=== PATIENT | male | born 1945 | race Caucasian/White ===

== ENCOUNTER 2024-06-27 17:53 | Emergency (ER) | payer MEDICARE, MEDICAID, SELFPAY ==
[2024-06-27 18:42] VITALS: PULSE 118; O2SAT 95
[2024-06-27 18:58] VITALS: BP 125/57; PULSE 75; RESP 18; TEMP 37.1; O2SAT 95
--- NOTE | 2024-06-27 19:34 | PD.EDURI ---
Upper Respiratory Inf. RME/HPI General Chief Complaint: Flu Like Symptoms Stated Complaint: FLU LIKE SYMPTOMS Time Seen by Provider: 06/27/24 18:49 Arrival date/time: 06/27/24 17:53 RME / HPI RME / HPI Narrative: Patient is a 79-year-old male with past medical history of hypothyroidism, BPH, gout, asthma, and Down syndrome who was brought in by caregiver from his intermediate due to concerns for worsening upper respiratory symptoms which initially started 4 days ago. Home RN noted that patient was having wet lung sounds and that O2 saturations were about 93% when he is normally around 98%, therefore recommended coming to the hospital. Patient noted to have clear phelgm and cough. Notable sick contacts include the caregiver. Earlier this week patient was prescribed a Z-arsenio and has now finished 4 out of 5 days.The caregiver denies any notable fever, chills, sweats, vomiting, or diarrhea. MD Complaint: cough and nasal congestion Onset (ago): day(s) Duration: constant Severity: moderate Description of mucous: clear Able to tolerate fluids by mouth: Yes Context: sick contacts Associated symptoms: nasal congestion and cough Treatments prior to arrival: acetaminophen, aspirin and antibiotics Related Data Home Medications ?Medication ?Instructions ?Recorded ?Confirmed Aspirin Ec * (ECOTRIN *) 81 mg PO QDAY ##0 06/24/16 TAMSULOSIN HCL 0.4 mg PO HS ##0 06/24/16 allopurinol 100 mg tablet 100 mg PO QDAY #0 tabs 06/24/16 (Zyloprim) loratadine 10 mg tablet (Claritin) 10 mg PO QDAY #0 tabs 06/24/16 meloxicam 7.5 mg tablet 7.5 mg PO HS #0 tabs 06/24/16 Previous Rx's ?Medication ?Instructions ?Recorded nebulizer and compressor #1 ea 02/10/23 Allergies Allergy/AdvReac Type Severity Reaction Status Date / Time No Known Allergies Allergy Unverified 02/03/23 06:47 Past Medical History Past Medical History Comments PMH COMMENT: Past Medical History: Hypothyroidism, BPH, gout, asthma, and Down syndrome Family History: Unknown Surgical History: Unknown Social History: Denies history of smoking, denies current alcohol use, denies recreational drug use Current Medications: Allopurinol 100 mg qday, aspirin 81 mg qday, levothyroxine 50 mcg qday, loratidine 10 mg qday, meloxicam 7.5 mg HS, tamsulosin 0.4 mg HS, albuterol 90 mcg prn (Source: Caregiver's patient medication list) Allergies: No known drug allergies ED Exam Narrative Physical exam: Physical Exam General: Awake and in no acute distress. Developmentally delayed, minimal verbal interaction. HEENT: Normocephalic, atraumatic, mucous membranes moist. Heart: Regular rate and rhythm, no murmurs. Lungs: Bilateral rhonchi auscultated bilateral upper and lower lobes. No wheezing. Abdomen: Soft, nondistended, nontender, positive bowel sounds. ?No guarding or rebound tenderness. Neurologic: Unable to assess orientation, no gross neurological deficit, and patient able to move all 4 extremities. Extremities: No edema. Skin: No rash or ecchymoses. Course Quality Measures none Orders Category Date Time Status Bedside COVID-19 Antigen Test NOW Care 06/27/24 19:42 Completed Bedside Influenza A&B Antigen Test NOW Care 06/27/24 19:42 Completed CXRP [XR chest 1V portable] Stat Exams 06/27/24 19:38 Completed CBC Stat Lab 06/27/24 19:57 Completed CMP [Comprehensive Metabolic Panel] Stat Lab 06/27/24 19:57 Completed Procalcitonin Stat Lab 06/27/24 19:57 Completed Urinalysis, C/S if Indicated Stat Lab 06/27/24 20:17 Completed Urine Culture Stat Lab 06/27/24 20:17 Received Albuterol/Ipratr Rt Donna [Duoneb Rt Donna] Med 06/27/24 19:42 Discontinued 3 ml INH X1 ONE Vital Signs Vital signs: Vital Signs Temperature 98.7 F 06/27/24 18:58 Pulse Rate 75 06/27/24 18:58 Respiratory Rate 18 06/27/24 18:58 Blood Pressure 125/57 L 06/27/24 18:58 Pulse Oximetry (%) 95 06/27/24 18:58 Oxygen Delivery Method Room Air 06/27/24 18:58 Upper Respiratory Infection MDM Narrative MDM Narrative:: CXR returned and shows similar findings to previous CXRs, no new obvious infiltrate. Influenza A swab came back positive. As the patient is saturating at 93-95% on room air, labs are within normal limits, the patient is stable to be discharged home. We did not prescribe any new antibiotics. Advised isolation for about 7-10 days from onset of flu symptoms to avoid spread in the intermediate. Advised to keep patient hydrated and course of illness should be self limiting. Use nebulizer and albuterol when possible. 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 CXR shows bilateral infiltrate however this was compared with a prior X-ray from 01/2023 and there seems to be a baseline level of opacity, possibly due to underlying pulmonary disease, however at that time patient was also admitted for COVID-pneumonia. Medications / Prescriptions Medications or Prescriptions considered but not ordered:: None Medication administrations:: Medication Administration History Discontinued Medications Albuterol/Ipratropium (Albuterol/Ipratropium (Duoneb) Rt Donna 3 Ml Nebu) 3 ml INH X1 ONE Stop: 06/27/24 19:43 Last Admin: 06/27/24 20:24 Dose: 3 ml Documented By: CARRIE . Consultations Consultation(s) initiated? (list below): No Diagnosis Upper Respiratory Differential Diagnosis: upper respiratory infection and bronchitis Most likely diagnosis given after review of the tests above:: Bronchitis, URI, community acquired pneumonia Admission Indicated Admission indicated?: not indicated Admission Request Was there a request for admission?: No Disposition Plan Disposition Plan: Discharge Discharge Attestation Discharge Attestation: The patient and all family members were given an opportunity to ask questions and understood the discharge instructions. Discharge instructions specifically effects, indications for sooner follow up or return to the emergency department, and the expected course of current diagnosis. Patient condition: Stable Discharge Plan Plan Patient Disposition: HOME (Self Care) Disposition Comment: Back to intermediate Patient condition on transfer: Stable Prescriptions/Referrals Prescriptions/Med Rec: No Action Aspirin Ec * (ECOTRIN *) 81 MG TABLET.DR 81 mg PO QDAY Qty: 0 allopurinol [Zyloprim] 100 MG tablet 100 mg PO QDAY Qty: 0 meloxicam 7.5 MG tablet 7.5 mg PO HS Qty: 0 loratadine [Claritin] 10 MG tablet 10 mg PO QDAY Qty: 0 TAMSULOSIN HCL 0.4 MG CAP.ER.24H 0.4 mg PO HS Qty: 0 (DME) nebulizer and compressor Device See Rx Instructions .Route Qty: 1 0RF Rx Instructions: As directed Referrals: Miguel Presley MD [Primary Care Provider] - In 1 week Problem List Clinical Impression: Influenza A with respiratory manifestations Patient/Caregiver Discharge Instructions Discharge Activity: activity as tolerated and resume usual activities Education Materials: COVID-19 and the Flu What's ..., Preventing Common Respiratory ..., The Flu (Influenza), ED Influenza (Adult) Additional Instructions: Treat symptoms ? Treating the symptoms of influenza can help you to feel better but will not make the flu go away faster. ?Rest until the flu is fully resolved, especially if the illness has been severe. ?Fluids ? Drink enough fluids so that you do not become dehydrated. One way to team assistant if you are drinking enough is to look at the color of your urine. Normally, urine should be light yellow to nearly colorless. If you are drinking enough, you should pass urine every three to five hours. ?Acetaminophen (sample brand name: Tylenol) can relieve fever, headache, and muscle aches. ?Cough medicines are not usually helpful; cough usually resolves without treatment. Antibiotics ? Antibiotics are NOT useful for treating viral illnesses such as influenza. Antibiotics should only be used if there is a bacterial complication of the flu such as bacterial pneumonia, ear infection, or sinusitis. Antibiotics can cause side effects and lead to development of antibiotic resistance. Complementary and alternative treatments ? There are a wide variety of herbal, homeopathic, and other complementary and alternative treatments that are marketed for influenza. Unfortunately, there have been few well-designed studies to evaluate their efficacy and safety. Print Language: Citizen [place] Stand Alone Forms: [employer] Award Info., Patient Portal Info Letter
--- NOTE | 2024-06-27 19:38 | XR_ITS ---
Examination: AP chest single view Technique one AP portable upright chest single view Exam date and time: June 27, 2024 at 1959 hrs. Comparison 04/10/2023 Indications: Shortness of breath coughing today. Findings: Bilateral alveolar and interstitial parenchymal disease No major cardiac enlargement There is moderate vascular congestion Prominent osteopenia Impression: Significant bilateral pneumonia Moderate vascular congestion
[2024-06-27 20:13] LABS: Basophils # (Auto) 0.1 Thou/mm3 (0.0-0.2); Basophils % (Auto) 1 % (0-2.5); Eosinophils # (Auto) 0.1 Thou/mm3 (0.0-0.5); Eosinophils % (Auto) 1 % (0-10); Hematocrit 33.2 % (41.0-53.0); Hemoglobin 10.9 g/dL (13.5-16.0); Immature Granulocytes % (Auto) 1 % (0-0); Immature Granulocytes Auto 0.04 Thou/mm3 (0.00-0.00); Lymphocytes # (Auto) 0.7 Thou/mm3 (1.0-4.8); Lymphocytes % (Auto) 8 % (10-50); Mean Corpuscular HGB Conc 32.8 g/dl (31.0-37.0); Mean Corpuscular Hemoglobin 32.8 pg (25.0-35.0); Mean Corpuscular Volume 100 fL (80-100); Monocytes # (Auto) 0.6 Thou/mm3 (0.0-0.8); Monocytes % (Auto) 7 % (0-12); Neutrophils # (Auto) 6.9 Thou/mm3 (1.8-7.7); Neutrophils % (Auto) 82 % (37-80); Nucleated Red Blood Cell % 0 /100 WBC (0); Platelet Count 262 Thou/mm3 (140-440); RDW Standard Deviation 56.2 fL (35.1-43.9); Red Blood Count 3.32 Miln/mm3 (4.50-5.90); White Blood Count 8.4 Thou/mm3 (3.8-10.6)
[2024-06-27 20:21] LABS: Collection Type, Urine Catheter
[2024-06-27] MEDS: ALBUTEROL/IPRATROPIUM (Duoneb) RT SOL 3 ML NEBU INH (20:24)
[2024-06-27 20:34] LABS: Bilirubin,Urine Negative (Negative); Blood,Urine Negative (Negative); Clarity,Urine Turbid (Clear/Hazy); Color,Urine Yellow (Lt Yel-Yel); Glucose, Urine Negative (Negative); Ketones,Urine 2+ (Negative); Leukocyte Esterase,Urine Positive (Negative); Nitrite,Urine Negative (Negative); Protein,Urine 1+ (Neg - Trace); RBC,Urine 3 /hpf (0-3); Specific Gravity,Urine 1.024 (1.001-1.035); Squamous Epithelial Cell,Urine 2 /hpf (0-5); WBC,Urine 21 /hpf (0-5)
[2024-06-27 20:35] LABS: Culture Indicated,Urine Yes
[2024-06-27 20:37] LABS: Alanine Aminotransferase 18 U/L (10-49); Albumin, Serum 3.6 gm/dL (3.4-4.8); Albumin/Globulin Ratio 1.2 (1.2-2.2); Alkaline Phosphatase 147 U/L (46-116); Anion Gap 8 (7-16); Aspartate Amino Transferase 32 U/L (0-34); BUN/Creatinine Ratio 14 Ratio (12-20); Bilirubin,Total 0.6 mg/dL (0.3-1.2); Blood Urea Nitrogen 17 mg/dL (9-23); Calcium 8.5 mg/dL (8.3-10.6); Calcium (Corrected) 8.8 mg/dL (8.5-10.1); Carbon Dioxide 27.1 mMol/L (20.0-31.0); Chloride 102 mMol/L (98-107); Creatinine (Component) 1.2 mg/dL (0.6-1.3); Globulin 3.1 gm/dL (2.3-3.5); Glucose 86 mg/dL (74-106); Osmolality,Calculated 274 (275-295); Potassium 5.1 mMol/L (3.4-5.1); Procalcitonin 0.36 ng/ml (0.0-0.49); Sodium 137 mMol/L (136-145); Total Protein 6.7 gm/dL (5.7-8.2); eGFR > 60 See Note
[2024-06-27 21:27] VITALS: RESP 18
== END 2024-06-27 21:30 | disposition home or self-care (01) ==
PROVIDERS: Student in an Organized Health Care Education/Training Program; Emergency Provider Emergency Medicine; PCP Family Medicine
DX: J10.1 Influenza due to other identified influenza virus with other respiratory manifestations (principal); J45.909 Unspecified asthma, uncomplicated; M10.9 Gout, unspecified; E03.9 Hypothyroidism, unspecified; Q90.9 Down syndrome, unspecified; N40.0 Benign prostatic hyperplasia without lower urinary tract symptoms; Z86.16 Personal history of COVID-19; Z87.01 Personal history of pneumonia (recurrent); Z79.890 Hormone replacement therapy; Z79.82 Long term (current) use of aspirin; Z79.899 Other long term (current) drug therapy
CPT/HCPCS: 36415; 71045; 80053; 81001; 84145; 85025; 87077; 87086; 87400; 87811; 94640; 99283; A9270